=== PATIENT | female | born 1975 | race American Indian/Alaskan Native ===

== ENCOUNTER 2018-11-20 10:37 | Outpatient (CLI) | payer OTHER ==
--- NOTE | 2018-11-20 16:19 | Mammography Report ---
BILATERAL DIGITAL SCREENING MAMMOGRAM with CAD : 11/20/18 10:37:00 CLINICAL: Routine screening. COMPARISON:12/06/16 mammogram and bilateral breast ultrasound FINDINGS: The breasts are heterogeneously dense, which may obscure small masses.A previously described right breast cyst at 10 o'clock has resolved. However, an oval circumscribed right lower outer mass is slightly larger compared to the previous exam. No architectural distortion or suspicious calcifications. The left breast is negative. IMPRESSION: A right lower outer mass requiring further evaluation. BI-RADS CATEGORY: 0--Needs Additional Imaging RECOMMENDATION: Recall for right spot compression views and targeted right breast ultrasound. COMMENT: Patient follow-up letters are generated by our [employer] application.
== END 2018-11-20 10:38 | disposition home or self-care (01) ==
LOC: MAMMO 10:37
PROVIDERS: ATTEND Nurse Practitioner Family
DX: Z12.31 Encounter for screening mammogram for malignant neoplasm of breast (principal)
CPT/HCPCS: 77067

== ENCOUNTER 2019-01-15 11:05 | Outpatient (CLI) | payer OTHER ==
--- NOTE | 2019-01-15 12:28 | Mammography Report ---
RIGHT DIGITAL DIAGNOSTIC MAMMOGRAM and RIGHT BREAST ULTRASOUND: 01/15/19 11:05:00 CLINICAL: Recall to evaluate a lower outer breast mass. COMPARISON:11/20/18 screening mammogram and 12/06/16 mammogram and ultrasound FINDINGS: The spot compression MLO and CC views demonstrate a partially circumscribed lower outer mass measuring approximately 1.2 cm maximum. Ultrasound of the lower outer right breast was performed and demonstrated an oval solid hypoechoic smooth mass at 7 o'clock 5 cm from the nipple. It measures 1.2 x 0.7 x 1.2 cm compared to 0.9 x 0.6 x 0.9 cm on the last exam. It is palpable the patient does not feel that has gotten larger. IMPRESSION: A slightly larger probably benign 1.2 cm right breast mass at 7 o'clock 5 cm from the nipple. BI-RADS CATEGORY: 3 - - Probably Benign RECOMMENDATION: 6 month followup right mammogram and targeted right breast ultrasound to reevaluate the size of the mass at 7 o'clock. ACR BI-RADS MAMMOGRAPHIC CODES: 0 = Needs additional imaging evaluation; 1 = Negative; 2 = Benign; 3 = Probably benign; 4 = Suspicious; 5 = Malignant; 6 = Known biopsy-proven malignancy COMMENT: 1. Dense breast tissue, i.e., adenosis, fibrocystic changes, etc., may obscure an underlying neoplasm. 2. Approximately 10% of cancers are not detected with mammography. 3. A negative mammography report should not delay biopsy if a clinically suspicious mass is present. COMMENT: Patient follow-up letters are generated via our [employer] application.
== END 2019-01-15 11:06 | disposition home or self-care (01) ==
LOC: MAMMO 11:05
PROVIDERS: ATTEND Nurse Practitioner Family
DX: N63.13 Unspecified lump in the right breast, lower outer quadrant (principal)

== ENCOUNTER 2019-06-25 09:35 | Outpatient (CLI) | payer OTHER ==
--- NOTE | 2019-06-25 11:15 | Mammography Report ---
RIGHT DIGITAL DIAGNOSTIC MAMMOGRAM WITH CAD RIGHT BREAST ULTRASOUND INDICATION: Follow-up of a mass at 7:00. TECHNIQUE: Digital right mammographic imaging was performed. Limited ultrasound was performed. This examination was interpreted with the benefit of Computer-Aided Detection (CAD) analysis. COMPARISON: 01/15/2019 and 12/06/2016 FINDINGS: Breast Density: The breast is heterogeneously dense, which may obscure small masses. The oval partial ly circumscribed lower outer mass is not significantly changed. No other mass. No architectural disto rtion or suspicious calcifications. Ultrasound Findings: Targeted ultrasound evaluation was performed of the area of interest. The prev iously described oval solid heterogeneous hypoechoic relatively smooth mass at 7:00 5 cm from the nip ple measures 1.4 x 0.7 x 1.2 cm compared to 1.2 x 0.7 x 1.2 cm on the last exam and paired to 0.9 x 0 .6 x 0.9 cm on the initial exam.. IMPRESSION: A slightly larger mildly suspicious solid left breast mass at 7:00 5 cm from the nipple. Recommend ultrasound-guided needle biopsy to exclude malignancy. I discussed the findings and the rec ommendation for needle biopsy with the patient at the time of the exam. BI-RADS Category 4: Suspicious for Malignancy. A "normal" or negative report should not discourage follow up or biopsy of a clinically significant f inding. A written summary of these findings will be mailed to the patient. The patient will be entered into a mammography reporting system which will generate a reminder letter for the patient's next appointmen t at the appropriate interval. FURTHER INFORMATION: According to the [employer], yearly mammograms are recommend ed starting at age 40 and continuing as long as a woman is in good health. Breast MRI is recommended for women with an approximately 20-25% or greater lifetime risk of breast cancer, including women wi th a strong family history of breast or ovarian cancer and women who have been treated for Hodgkin's disease. Signer Name: Manjeet Baum MD Signed: 06/25/2019 11:10 AM Workstation Name: [id number]
== END 2019-06-25 09:36 | disposition home or self-care (01) ==
LOC: MAMMO 09:35
PROVIDERS: ATTEND Family Medicine
DX: R92.8 Other abnormal and inconclusive findings on diagnostic imaging of breast (principal)

== ENCOUNTER 2019-07-13 10:21 | Outpatient (CLI) | payer OTHER ==
--- NOTE | 2019-07-13 11:36 | Ultrasound Report ---
ULTRASOUND-GUIDED NEEDLE CORE BIOPSY RIGHT BREAST WITH CLIP PLACEMENT CLINICAL: Enlarging palpable mass at 7:00 5 cm from the nipple. COMPARISON: 01/15/2019 FINDINGS: The procedure was explained to the patient and informed consent was obtained. Ultrasound demonstrated the previously identified the previously described oval superficial solid mob ile mass at 7:00.. I marked the breast with a felt tip marker and a timeout was called. The skin was prepped with Chloro -Prep and anesthetized with 1% lidocaine. Needle core biopsy was performed through small dermatotomy using ultrasound guidance, 2% lidocaine wi th epinephrine for deep anesthesia and a 14-gauge Achieve biopsy device. 4 cores were obtained and pl aced in formalin. A clip was deployed within the lesion. The patient tolerated the procedure well and there were no apparent complications. Hemostasis was ach ieved with minimal effort and a sterile dressing was applied. A post procedure mammogram demonstrated concordant clip deployment. She left the department in good c ondition and was given instructions for wound care and follow-up. IMPRESSION: Uncomplicated ultrasound guided needle core biopsy with clip placement right breast. Signer Name: Manjeet Baum MD Signed: 07/13/2019 11:31 AM Workstation Name: [id number]
--- NOTE | 2019-07-13 11:37 | Mammography Report ---
RIGHT DIGITAL DIAGNOSTIC MAMMOGRAM CLINICAL: For clip placement after ultrasound-guided needle biopsy. COMPARISON: 06/25/2019 FINDINGS: A biopsy clip is now identified within the mass at 7:00. IMPRESSION: Concordant clip deployment. Signer Name: Manjeet aBum MD Signed: 07/13/2019 11:33 AM Workstation Name: [id number]
== END 2019-07-13 10:22 | disposition home or self-care (01) ==
LOC: SPVWC 10:21
PROVIDERS: ATTEND Family Medicine
DX: N63.13 Unspecified lump in the right breast, lower outer quadrant (principal)
CPT/HCPCS: 19083; 77065; 88305; A4648